=== PATIENT | female | born 2000 | race Caucasian/White ===

== ENCOUNTER 2022-05-18 00:01 | Emergency (ER) | payer BC, SELFPAY ==
--- NOTE | ~2022-05-18 | CT_ITS ---
EXAMINATION: CT ABDOMEN AND PELVIS WITH CONTRAST CLINICAL INFORMATION: Right lower quadrant tenderness/pain. Rule out appendicitis. COMPARISON: None available. TECHNIQUE: Multidetector volumetric images were obtained from the superior aspect of the liver through the pubic symphysis following administration 85 mL of Omnipaque 350 intravenous contrast. Sagittal and coronal reformatted images were obtained on the technologist's workstation. Oral contrast: No This CT examination was performed using dose optimization techniques as appropriate, variously including the following: *Automated exposure control *Adjustment of mA and/or kV according to patient size (this includes techniques or standardized protocols for targeted exams where dose is matched to indication/reason for exam; i.e. extremities or head) *Use of iterative reconstruction technique DLP: 350 mGy-cm FINDINGS: LUNG BASES: The visualized lung bases are unremarkable. LIVER, GALLBLADDER, AND BILIARY TREE: The liver is normal in size, shape, and attenuation. No focal hepatic lesion or biliary ductal dilatation is present. The gallbladder is unremarkable with no evidence of radiopaque gallstones, gallbladder wall thickening, or obvious pericholecystic inflammatory changes. PANCREAS: Unremarkable. SPLEEN: Unremarkable. ADRENAL GLANDS: Unremarkable. KIDNEYS AND URETERS: The kidneys are normal in size, shape, and attenuation. No hydronephrosis, hydroureter, or calculi seen. No perinephric stranding. BLADDER: Unremarkable. GASTROINTESTINAL TRACT: The small and large bowel are unremarkable. The appendix is unremarkable. ABDOMINAL WALL: No significant hernia is appreciated. LYMPH NODES: Normal. VASCULAR: Unremarkable. PELVIC VISCERA: The uterus and adnexa are unremarkable. OSSEOUS STRUCTURES: Unremarkable. CT/CT abdomen pelvis w IV con IMPRESSION: No acute findings of the abdomen or pelvis. Normal appendix. Fleischner guidelines were followed.
[2022-05-18 00:16] VITALS: BP 122/80; BP 130/80; PULSE 80; PULSE 81; RESP 16; TEMP 37.1; O2SAT 97; O2SAT 98; BMI 22.6
[2022-05-18 01:02] LABS: Hematocrit 47.2 % (37.0-47.0); Hemoglobin 16.2 g/dl (12.0-16.0); Mean Corpuscular HGB Conc 34.3 g/dl (31.0-35.0); Mean Corpuscular Hemoglobin 30.3 pg (27.0-33.0); Mean Corpuscular Volume 88.4 fL (80.0-98.0); Mean Platelet Volume 9.2 fL (9.4-12.3); Platelet Count 324 X10*3/uL (160-400); Red Blood Count 5.34 X10*6/uL (4.20-5.50); Red Cell Distribution Width 11.7 % (11.0-16.0); White Blood Count 8.4 X10*3/uL (4.8-10.8)
[2022-05-18 01:03] LABS: Appearance Urine Clear; Color Urine Yellow; Glucose Urine UA Negative (Negative); Leukocyte Esterase Urine Small (1+) (Negative); Nitrite Urine Negative (Negative); Specific Gravity - Urine <= 1.005 (1.005-1.025); UMIC TRIGGER UACC YES; Urine Blood Negative (Negative); Urine Ketones Negative (Negative); Urine Protein Negative (Neg-Trace)
[2022-05-18 01:15] LABS: Alanine Aminotransferase 10 U/L (0-31); Albumin Level 4.3 g/dL (3.5-5.0); Alkaline Phosphatase 74 U/L (39-117); Anion Gap 12 (12-20); Aspartate Amino Transferase 16 U/L (5-31); Bacteria Urine None Seen (None Seen); Bilirubin Direct < 0.2 mg/dL (0.0-0.5); Bilirubin Total 0.5 mg/dL (0.0-1.0); Blood Urea Nitrogen 6 mg/dL (9-16); Calcium 9.4 mg/dL (8.4-10.2); Carbon Dioxide 25 mmol/L (22-29); Chloride 108 mmol/L (96-108); Estimated Glomerular Filt Rate > 60; Glucose Random 95 mg/dL (60-115); Hyaline Casts Urine 0-2 /LPF (0-2); Lipase 20 U/L (8-78); Potassium 4.2 mmol/L (3.3-5.1); RBC Urine 0-2 /HPF (0-2); Sodium 141 mmol/L (135-145); Squamous Epithelial Cell Urine 0-2 /HPF (0-2); Total Protein 7.2 g/dL (6.5-8.0); UACC Culture Trigger YES; WBC Urine 0-5 /HPF (0-5)
[2022-05-18 02:13] VITALS: BP 105/70; PULSE 82; RESP 16; TEMP 36.8; O2SAT 97
[2022-05-18 04:02] VITALS: BP 95/65; PULSE 103; RESP 16; TEMP 36.8; O2SAT 97
--- NOTE | 2022-05-18 04:43 | ED.ABDPAIN ---
HPI - Abdominal Pain General Chief Complaint: Abdominal Pain Stated Complaint: ABD PAIN S/P EATING 1 1/2 AGO,FROM [facility] [place] Time Seen by Provider: 05/18/22 04:23 Source: patient Mode of arrival: EMS Limitations: no limitations History of Present Illness HPI narrative: 21-year-old male with female gender at who presents to the emergency department for evaluation of abdominal pain. The patient is a student at [employer]. He ate dinner at around 20:30 and the dining barn[employer]. He had a mushroom pizza with chili peppers and jalapeno peppers. He states that he also ate a chocolate cake and maryam ice cream. He states that about 30 minutes after eating this food he developed abdominal pain. He points to his umbilical area when asked to locate the pain. States the pain is a throbbing, constant pain which is 7/10. States that he does feel bloated. The patient denied fever, chills, rhinorrhea, sore throat, cough, chest pain, shortness of breath. He did have nausea with no vomiting. He denied diarrhea. This is 1st episode of this type of pain. He did not take any pain medications. The patient does take testosterone and he states that he has not had a menstrual period in 5 months and is only had occasional spotting. He is sexually active any has sex with men. Related Data Previous Rx's Medication Instructions Recorded ondansetron 4 mg disintegrating 4 mg PO Q6-8H PRN nausea and 05/18/22 tablet vomiting #14 tabs Allergies Allergy/AdvReac Type Severity Reaction Status Date / Time No Known Allergies Allergy Verified 05/18/22 00:36 Review of Systems Review of Systems Yes all other systems are reviewed and are negative [facility] Past Medical History [facility] Narrative: Past medical history: Insulin-dependent diabetes mellitus, the patient is on a insulin pump. Anxiety, autism, ADHD, PTSD. Social history: He is a student at [employer]. He occasionally drinks alcohol but he last drank alcohol last week. He does use marijuana. Social History Social History Smoked in Last 30 Days: No Use of substances other than those prescribed or required for medical reasons: No Advance Directives: No Advance Directives Information Provided: Yes Physical Exam ED Vital Signs: Vital Signs - 24 hr 05/18/22 00:16 05/18/22 02:13 05/18/22 04:02 Temperature 98.8 F 98.3 F 98.3 F Pulse Rate 81 82 103 H Respiratory Rate 16 16 16 Blood Pressure 122/80 105/70 95/65 Pulse Oximetry 97 97 97 Oxygen Delivery Method Room Air Room Air Room Air 05/18/22 06:00 Temperature 98.3 F Pulse Rate 64 Respiratory Rate 16 Blood Pressure 111/62 Pulse Oximetry 97 Oxygen Delivery Method Room Air BMI result Body Mass Index 22.6 Const Other: Awake, alert, male patient, pleasant, cooperative, does not appear to be in distress, answers all questions appropriately HENMT Head: Yes normal to inspection, Yes normocephalic and Yes atraumatic Ears: external ears normal General nose exam: Normal external nose present Face and sinus: Yes normal facial exam Mouth: Normal oral and palatal mucosa present Throat: Yes posterior oropharynx normal Eyes General: appearance normal, both eyes and all related structures Pupils: Equal, round and reactive pupils present Neck Neck: Yes normal visual inspection, Yes no lymphadenopathy, Yes trachea midline and Yes supple Chest Chest palpation & inspection: normal inspection of the chest and normal palpation of entire chest wall Resp Effort & Inspection: normal respiratory effort and able to speak in complete sentences Auscultation: clear to auscultation bilaterally Cardio Rate: regular rate Rhythm: regular rhythm Heart sounds: S1 normal heart sound present, S2 normal heart sound present and no murmurs GI Inspection: Yes normal to inspection Palpation (GI): Soft to palpation, Tenderness to palpation present (GI) in the epigastrum (Moderate), in the RLQ (Moderate) and periumbilically ([id number]) and no guarding Auscultation: normal bowel sounds General: Yes no CVA tenderness Back/Spine/Pelvis Back: no CVA tenderness Skin General skin exam: no rashes or lesions noted Neuro Cranial nerves: Yes CN's II-XII intact bilaterally and Yes Equal, round and reactive pupils present Cognition (Neuro): normal cognition Motor exam (neuro): 5/5 motor strength present throughout Extrem General: Yes normal to inspection Psych Appearance: grossly normal Speech and movement: Normal speech and movement present Affect: normal affect Attitude: cooperative Medical Decision Making Medical Decision Making MDM Narrative: 21-year-old male who presents to the emergency department for evaluation abdominal pain which began 30 minutes after he ate dinner which consisted of pizza with mushrooms, chili peppers and jalapeno peppers, maryam ice cream and chocolate cake. Patient had a bloated sensation with constant nausea but no vomiting. This is the patient's 1st episode of this type pain. His vital signs were normal. He did have mild epigastric and periumbilical tenderness, and moderate right lower quadrant tenderness. I did order laboratory evaluation to include CBC, CMP, lipase, urinalysis, urine test. CT scan of the abdomen pelvis with IV contrast was also ordered. Patient was ordered to get Toradol 15 mg IV , Zofran 4 mg IV and normal saline x1 L. 0732: My interpretation patient's laboratory evaluation is as follows. CBC was normal. CMP was normal. Urinalysis was negative. Urine test was negative. CT scan of the abdomen pelvis did not reveal a clear etiology for the patient's pain. The radiologist did see patient's appendix and appeared to be normal. Patient did feel better after the above treatment. Patient did have improvement of his tenderness but still has persistent tenderness in the epigastric area and right lower quadrant area. Patient was ordered to get Maalox 30 cc, viscous lidocaine 10 cc and dark all 10 cc orally. The patient will be discharged home and advised to take ibuprofen 400 mg 3 times a day and Zofran ODT 4 mg every 8 hours as needed for nausea and vomiting. I did tell the patient that if he continued to have pain after 24 hours specially if the pain was located in his right lower quadrant or his pain got worse he should return to the emergency department to be re-evaluated for possible appendicitis. Lab Data [facility] Lab Attestation statement: I reviewed the patient's lab results. Please see [facility] for discussion 05/18/22 00:46 05/18/22 00:46 Labs: Lab Results 05/18/22 05/18/22 05/18/22 Range/Units 00:46 00:46 00:46 WBC 8.4 (4.8-10.8) X10*3/uL RBC 5.34 (4.20-5.50) X10*6/uL Hgb 16.2 H (12.0-16.0) g/dl Hct 47.2 H (37.0-47.0) % MCV 88.4 (80.0-98.0) fL MCH 30.3 (27.0-33.0) pg MCHC 34.3 (31.0-35.0) g/dl RDW 11.7 (11.0-16.0) % Plt Count 324 (160-400) X10*3/uL MPV 9.2 L (9.4-12.3) fL Absolute Nucleated RBC 0.000 (0.0-0.012) X10*3/uL Nucleated RBC % (auto) 0.0 (0.0-0.2) /100WBC Sodium 141 (135-145) mmol/L Potassium 4.2 (3.3-5.1) mmol/L Chloride 108 (96-108) mmol/L Carbon Dioxide 25 (22-29) mmol/L Anion Gap 12 (12-20) BUN 6 L (9-16) mg/dL Creatinine 0.78 (0.5-1.4) mg/dL Estim Creat Clear Calc 86.0 Estimated GFR > 60 Random Glucose 95 (60-115) mg/dL Calcium 9.4 (8.4-10.2) mg/dL Total Bilirubin 0.5 (0.0-1.0) mg/dL Direct Bilirubin < 0.2 (0.0-0.5) mg/dL AST 16 (5-31) U/L ALT 10 (0-31) U/L Alkaline Phosphatase 74 (39-117) U/L Total Protein 7.2 (6.5-8.0) g/dL Albumin 4.3 (3.5-5.0) g/dL Lipase 20 (8-78) U/L Urine Color Yellow Urine Appearance Clear Urine pH 7.0 (5.0-9.0) Ur Specific [place] <= 1.005 (1.005-1.025) Urine Protein Negative (Neg-Trace) mg/dL Urine Glucose (UA) Negative (Negative) mg/dL Urine Ketones Negative (Negative) mg/dL Urine Blood Negative (Negative) Urine Nitrite Negative (Negative) Ur Leukocyte Esterase Small (1+) H (Negative) Urine RBC 0-2 (0-2) /HPF Urine WBC 0-5 (0-5) /HPF Ur Squamous Epith Cells 0-2 (0-2) /HPF Urine Bacteria None Seen (None Seen) Hyaline Casts 0-2 (0-2) /LPF Urine Test (NEGATIVE) 05/18/22 Range/Units 00:46 WBC (4.8-10.8) X10*3/uL RBC (4.20-5.50) X10*6/uL Hgb (12.0-16.0) g/dl Hct (37.0-47.0) % MCV (80.0-98.0) fL MCH (27.0-33.0) pg MCHC (31.0-35.0) g/dl RDW (11.0-16.0) % Plt Count (160-400) X10*3/uL MPV (9.4-12.3) fL Absolute Nucleated RBC (0.0-0.012) X10*3/uL Nucleated RBC % (auto) (0.0-0.2) /100WBC Sodium (135-145) mmol/L Potassium (3.3-5.1) mmol/L Chloride (96-108) mmol/L Carbon Dioxide (22-29) mmol/L Anion Gap (12-20) BUN (9-16) mg/dL Creatinine (0.5-1.4) mg/dL Estim Creat Clear Calc Estimated GFR Random Glucose (60-115) mg/dL Calcium (8.4-10.2) mg/dL Total Bilirubin (0.0-1.0) mg/dL Direct Bilirubin (0.0-0.5) mg/dL AST (5-31) U/L ALT (0-31) U/L Alkaline Phosphatase (39-117) U/L Total Protein (6.5-8.0) g/dL Albumin (3.5-5.0) g/dL Lipase (8-78) U/L Urine Color Urine Appearance Urine pH (5.0-9.0) Ur Specific [place] (1.005-1.025) Urine Protein (Neg-Trace) mg/dL Urine Glucose (UA) (Negative) mg/dL Urine Ketones (Negative) mg/dL Urine Blood (Negative) Urine Nitrite (Negative) Ur Leukocyte Esterase (Negative) Urine RBC (0-2) /HPF Urine WBC (0-5) /HPF Ur Squamous Epith Cells (0-2) /HPF Urine Bacteria (None Seen) Hyaline Casts (0-2) /LPF Urine Test NEGATIVE (NEGATIVE) Radiology Impression Discussion of test interpretation with radiology: I have reviewed the radiologist's reading. Radiologist Impression: CT abdomen pelvis w IV con IMPRESSION: No acute findings of the abdomen or pelvis. Normal appendix. Fleischner guidelines were followed. Dictated By:Arpit Walker MDSigned By:<Electronically signed by Arpit Walker MD in [place]>05/18/22 0537 Medications Administered Discontinued Medications Generic Name Dose Route Start Last Admin Trade Name Freq PRN Reason Stop Dose Admin Sodium Chloride 1,000 mls @ 999 mls/hr 05/18/22 04:43 05/18/22 06:37 Ns IV 05/18/22 05:43 Infused .Q1H1M STA Infusion Iohexol 85 ml 05/18/22 05:20 05/18/22 05:20 Iohexol 350 Mg/Ml 100 Ml Infus..Btl IV 05/18/22 05:21 85 ml ONCE ONE Administration Ketorolac Tromethamine 15 mg 05/18/22 04:43 05/18/22 04:58 Ketorolac Tromethamine 15 Mg/Ml Vial IVPUSH 05/18/22 04:44 15 mg ONCE STA Administration Ondansetron HCl 4 mg 05/18/22 04:43 05/18/22 04:58 Ondansetron Hcl 4 Mg/2 Ml Vial IVPUSH 05/18/22 04:44 4 mg ONCE ONE Administration Discharge Plan Discharge Clinical Impression: Nausea Abdominal pain Qualifiers: Abdominal location: right lower quadrant Qualified Code(s): R10.31 - Right lower quadrant pain Patient Disposition: Home, Self-Care Instructions: Abdominal Pain (ED) Additional Instructions: Your blood work was unremarkable. Your urinalysis was unremarkable. The CT scan of your abdomen pelvis did not reveal a clear cause for your pain, your appendix does appear to be normal at this time. Sometimes early appendicitis is difficult to diagnose, your blood work can be normal in your pending skin looked normal on the CT scan but you still have appendicitis. If your pain does not resolve completely in 24 hours or if your pain gets worse then you need to return to the emergency department for re-evaluation. Take ibuprofen 200 mg pills, 2 pills every 6 hours as needed for pain. Take Zofran ODT 4 mg pills, 1 pill dissolved in your mouth every 8 hours as needed for nausea and vomiting. Stay on a basic CEASAR diet (bananas, rice, applesauce, tea and toast) for the next 24 hours. Follow-up with your doctor in 2 days. Please return to the emergency department if your symptoms get worse or if you develop any symptoms that are concerning to you. Please see school note. Prescriptions: New ondansetron 4 mg tablet,disintegrating 4 mg PO Q6-8H PRN (Reason: nausea and vomiting) Qty: 14 0RF Stand Alone Forms: Work/School Release
[2022-05-18 04:54] LABS: UPreg QC Valid YES; Urine Pregnancy NEGATIVE (NEGATIVE)
[2022-05-18] MEDS: 0.9 % Sodium Chloride 1,000 ML 999 ML IV (04:58)
[2022-05-18] MEDS: Ketorolac Tromethamine 15 MG/ML VIAL IVPUSH (04:58)
[2022-05-18] MEDS: ondansetron HCL 4 MG/2 ML VIAL IVPUSH (04:58)
--- NOTE | 2022-05-18 05:00 | PC.NURSE ---
pt medicated per Mar, pt being taken for CT scan at this time.
[2022-05-18] MEDS: iohexoL 350 MG/ML 100 ML INFUS..BTL 85 ML IV (05:20)
[2022-05-18 06:00] VITALS: BP 111/62; PULSE 64; RESP 16; TEMP 36.8; O2SAT 97
--- NOTE | 2022-05-18 06:15 | PC.NURSE ---
pt is resting at this time , no sign of distress.
[2022-05-18 07:29] VITALS: BP 128/81; PULSE 91; RESP 18; TEMP 36.9; O2SAT 93
[2022-05-18] MEDS: Magnesium Hydrox/Alum Hydrox 30 ML ORAL.SUSP PO (08:15)
[2022-05-18] MEDS: Lidocaine HCl Viscous 2 % 15 ML SOLUTION 10 ML PO (08:15)
[2022-05-18] MEDS: PHENobarb/Hyoscy/Atropine/Scop 10 ML ELIXIR PO (08:16)
== END 2022-05-18 08:25 | disposition home or self-care (01) ==
PROVIDERS: Emergency Provider Emergency Medicine Emergency Medical Services
DX: R10.31 Right lower quadrant pain (principal); E11.9 Type 2 diabetes mellitus without complications; R10.13 Epigastric pain; Z79.4 Long term (current) use of insulin; Z79.899 Other long term (current) drug therapy
CPT/HCPCS: 36415; 74177; 80053; 81001; 81025; 82248; 83690; 85027; 87086; 96361; 96374; 96375; 99284; 99285; J1885; J2405; Q9967